=== PATIENT | male | born 1975 ===

== ENCOUNTER 2024-08-23 23:53 | Emergency (ER) | payer SELFPAY ==
[~2024-08-23] VITALS: Ht 172.7 cm; Wt 103.9 kg
[2024-08-24 00:35] LABS: BASOPHILS # (AUTO) 0.04 K/uL (0.00-0.20); BASOPHILS % (AUTO) 0.7 % (0.0-5.0); EOSINOPHILS % (AUTO) 1.8 % (0.0-8.0); IMMATURE GRANULOCYTE ABSOLUTE 0.03 K/uL (0-1); LYMPHOCYTES # (AUTO) 2.3 K/uL (1.0-4.8); MEAN CORPUSCULAR HEMOGLOBIN 30.7 pg (27.0-33.0); MEAN CORPUSCULAR HGB CONC 33.8 g/dL (32.0-36.0); MEAN CORPUSCULAR VOLUME 90.9 fL (79-99); MONOCYTES # (AUTO) 0.5 K/uL (0.1-1.0); MONOCYTES % (AUTO) 8.7 % (3.0-13.0); NEUTROPHILS # (AUTO) 2.7 K/uL (1.8-7.7); NEUTROPHILS % (AUTO) 47.3 % (40.0-77.0); PLATELET COUNT (AUTO) 214 K/uL (130-400); RED BLOOD CELL COUNT(AUTO) 4.62 MIL/uL (4.50-6.20); RED CELL DISTRIBUTION WIDTH 12.7 % (11.0-15.5); WHITE BLOOD COUNT (AUTO) 5.6 K/uL (4.8-10.8)
[2024-08-24 00:43] LABS: CREATININE 1.1 mg/dL (0.5-1.3); POTASSIUM 4.1 mmol/L (3.5-5.1)
[2024-08-24 00:57] LABS: B-TYPE NATRIURETIC PEPTIDE 36 pg/mL (0-100)
--- NOTE | 2024-08-24 01:06 | ERN ---
General Chief Complaint: Chest Pain Stated Complaint: C/O CP WITH PRESSURE, RT ARM PAIN, SOB Time Seen by MD: 00:22 Source: patient, family History of Present Illness Initial Comments Patient is a 49-year-old male previously healthy who comes in with chest pain radiates down his right arm. This is the 1st time he has ever had it it is associated with a little bit of shortness of breath occasionally. Allergies: Coded Allergies: No Known Allergies (Unverified Allergy, Unknown, 08/23/24) Past Medical History Past Medical History: No Pertinent History Past Surgical History: None ROS Dictation Review of systems is negative. For mental status changes visual changes hearing changes he has no symptoms of an upper respiratory tract infection no neck pain no gastrointestinal symptoms no nausea no vomiting no diarrhea good sensation throughout all of his extremities. Says he takes no medicines has no allergies. Physical Exam General Appearance: (+) no apparent distress Orientation: (+) oriented x 3 Eye: bilateral eye normal inspection, bilateral eye PERRL, bilateral eye EOMI Ear, Nose, Throat: (+) hearing grossly normal, (+) normal ENT inspection, (+) moist mucous membraine Neck: (+) normal inspection, (+) supple, (+) no JVD Respiratory: (+) chest non-tender, (+) lungs clear, (+) well ventilated Heart: (+) regular, (+) no gallop Vascular: (+) no edema, (+) normal peripheral pulse Gastrointestinal: (+) soft, (+) non-tender, (+) no organomegaly Results Laboratory and Microbiology Lab and Micro Result Laboratory Tests Test 08/24/24 00:14 White Blood Count 5.6 K/uL (4.8-10.8) Red Blood Count 4.62 MIL/uL (4.50-6.20) Hemoglobin 14.2 g/dL (14.0-18.0) Hematocrit 42.0 % (42-54) Mean Corpuscular Volume 90.9 fL (79-99) Mean Corpuscular Hemoglobin 30.7 pg (27.0-33.0) Mean Corpuscular Hemoglobin Concent 33.8 g/dL (32.0-36.0) Red Cell Distribution Width 12.7 % (11.0-15.5) Platelet Count 214 K/uL (130-400) Mean Platelet Volume 9.2 fL (7.5-10.5) Immature Granulocyte % (Auto) 0.5 % (0-1) Neutrophils (%) (Auto) 47.3 % (40.0-77.0) Lymphocytes (%) (Auto) 41.0 % (21.0-51.0) Monocytes (%) (Auto) 8.7 % (3.0-13.0) Eosinophils (%) (Auto) 1.8 % (0.0-8.0) Basophils (%) (Auto) 0.7 % (0.0-5.0) Neutrophils # (Auto) 2.7 K/uL (1.8-7.7) Lymphocytes # (Auto) 2.3 K/uL (1.0-4.8) Monocytes # (Auto) 0.5 K/uL (0.1-1.0) Eosinophils # (Auto) 0.10 K/uL (0.00-0.70) Basophils # (Auto) 0.04 K/uL (0.00-0.20) Absolute Immature Granulocyte (auto 0.03 K/uL (0-1) Nucleated Red Blood Cells 0.0 % (0.0-0.19) Sodium Level 143 mmol/L (136-145) Potassium Level 4.1 mmol/L (3.5-5.1) Chloride Level 104 mmol/L (101-111) Carbon Dioxide Level 28 mmol/L (21-32) Blood Urea Nitrogen 22 mg/dL (7-18) H Creatinine 1.1 mg/dL (0.5-1.3) Glomerular Filtration Rate Calc 83 mL/min (>90) Random Glucose 121 mg/dL (70-105) H Total Calcium 8.7 mg/dL (8.5-10.1) Total Creatine Kinase 100 U/L (21-232) Troponin I High Sensitivity < 4 ng/L (4-75) L B-Type Natriuretic Peptide 36 pg/mL (0-100) Labs Reviewed?: Yes EKG/XRAY/US/CT/MRI EKG: (+) [facility]R [facility] Patient EKG shows normal sinus rhythm with no ischemic changes. Laboratory studies are all normal. His creatinine is 1.1. Potassium is normal. CBC is normal. BNP and troponin both normal. ED Course Orders Procedure Category Date Status Time Vital Signs Per CPOE 08/24/24 Transmitted Routine 00:03 B-Type Natriuretic LAB 08/24/24 Complete Peptide 00:03 Chest 1vw RAD 08/24/24 Taken 00:03 12 Lead Ekg Tracing- EKG 08/24/24 Logged Technical 00:03 Oxygen By Nc/Pulse Ox CPOE 08/24/24 Transmitted 00:03 Maintain Iv CPOE 08/24/24 Transmitted 00:03 Iv Insertion CPOE 08/24/24 Transmitted 00:03 Cardiac Monitoring CPOE 08/24/24 Transmitted 00:03 Pulse Oximetry With CPOE 08/24/24 Transmitted Vs And Prn 00:03 Cbc With Differential LAB 08/24/24 Complete 00:03 Activity: Br W/Brp CPOE 08/24/24 Transmitted With Assist 00:03 Creatine Kinase, Total LAB 08/24/24 Complete 00:03 Troponin I High LAB 08/24/24 Complete Sensitivity 00:03 Urinalysis Profile LAB 08/24/24 In Process 00:03 Basic Metabolic Panel LAB 08/24/24 Complete 00:03 Vital Signs Date Time Temp Pulse Resp B/P (MAP) Pulse Ox O2 Delivery O2 Flow Rate FiO2 08/24/24 00:28 76 18 134/84 96 Room Air* 0 21 08/23/24 23:57 97.5 75 20 129/87 98 Room Air DX & DISP Disposition: Discharge Departure Impression: Primary Impression: Chest pain in adult Condition: Stable PASCALE BECK MD Aug 24, 2024 01:06
--- NOTE | 2024-08-24 01:27 | HMCIMG ---
CHEST 1VW HISTORY: Chest pain COMPARISON: None FINDINGS: A frontal projection of the chest was obtained. No acute pulmonary infiltrates is seen. The heart is normal in size. Prominent interstitial markings are seen. No evidence of aortic calcification is seen. IMPRESSION: 1. No acute pulmonary infiltrate is seen.
[2024-08-24 01:35] VITALS: BP 108/65; PULSE 77; RESP 18; TEMP 98.2; O2SAT 98
--- NOTE | 2024-08-24 06:40 | EKG ---
[facility] Test Date: 2024-08-23 Test Time: 23:58:57 Pat Name: SIM STALLWORTH Department: ED Room: Gender: M Timber Deadener: [id number] : 1975 Requested By: PASCALE BECK Order Number: [id number] Reading MD: Madalyn Stubbs Measurements Intervals [place] Rate: 80 P: 20 WV: 114 QRS: -49 QRSD: 90 T: 32 QT: 375 QTc: 432 Interpretive Statements Sinus rhythm Left anterior fascicular block ST elev, probable normal early repol pattern No previous ECG available for comparison Electronically Signed On 08-28-2024 12:39:40 CDT by Madalyn Stubbs Please click the below link to view image of tracing.
== END 2024-08-24 01:36 | disposition home or self-care (01) ==
LOC: EDH 08-24 00:06
DX: R07.89 Other chest pain (principal); R06.02 Shortness of breath
CPT/HCPCS: 36415; 71045; 80048; 82550; 83880; 84484; 85025; 93005; 99285